=== PATIENT | female | born 1975 | race Caucasian/White ===

== ENCOUNTER 2020-10-05 07:06 | Outpatient (CLI) | payer BC, SELFPAY ==
[2020-10-05 07:53] LABS: Basophils Absolute Auto 0.02 K/mm3 (0.00-0.10); Basophils Percent Auto 0.4 % (0.0-1.0); Eosinophils Absolute Auto 0.14 K/mm3 (0.02-0.50); Hematocrit 39.4 % (35.0-49.0); Hemoglobin 13.1 g/dL (12.0-15.0); Immature Granulocyte Absolute 0.02 K/mm3 (0.00-0.00); Immature Granulocyte Percent A 0.4 % (0.0-0.0); Lymphocytes Absolute Auto 1.43 K/mm3 (1.10-4.50); Mean Corpuscular HGB Conc 33.2 g/dL (32.0-36.0); Mean Corpuscular Volume 99.2 fL (78.0-102.0); Mean Platelet Volume 8.8 fl (9.2-11.8); Monocytes Absolute Auto 0.52 K/mm3 (0.10-0.90); Monocytes Percent Auto 11.3 % (2.0-11.0); Neutrophils Absolute Auto 2.5 K/mm3 (1.7-7.2); Neutrophils Percent Auto 53.9 % (50.0-70.0); Platelet Count Result 328 K/mm3 (150-420); Red Blood Count 3.97 M/mm3 (4.20-5.40); Red Cell Distribution Width 12.4 % (11.6-14.4); White Blood Count 4.6 K/mm3 (4.8-10.8)
[2020-10-05 09:04] LABS: Alanine Aminotransferase 32 U/L (14-59); Albumin Level 3.9 g/dL (3.4-5.0); Alkaline Phosphatase 59 U/L (46-116); Anion Gap 8 mmol/L (8-16); Aspartate Amino Transferase 17 U/L (15-37); Bilirubin,Total 0.3 mg/dL (0.00-1.00); Blood Urea Nitrogen 9 mg/dL (7-18); Carbon Dioxide 28 mmol/L (21-32); Chloride 107 mmol/L (98-108); Cholesterol 159 mg/dL (0-200); Estimated Glomerular Filt Rate > 60; Free T3 2.09 pg/mL (2.18-3.98); Free T4 Free Thyroxine 0.68 ng/dL (0.76-1.46); Glucose 83 mg/dL (70-99); HDL Direct 73 mg/dL (40-60); LDL Cholesterol Calculated 77 mg/dL (<130); Osmolality Calculated 293 mOsm/kg (285-295); Potassium 4.6 mmol/L (3.5-5.1); Sodium 143 mmol/L (136-145); Thyroid Stimulating Hormone 1.23 uIU/mL (0.36-3.74); Total Protein 6.5 g/dL (6.4-8.2); Triglycerides 46 mg/dL (0-150)
[2020-10-07 14:13] LABS: Homocysteine 10.1 umol/L (<10.4)
[2020-10-08 07:20] LABS: Cortisol Random 10.6 mcg/dL (***); FSH 6.3 mIU/mL (***); LH 9.6 mIU/mL (***)
[2020-10-08 10:23] LABS: CRP, High Sensitivity <0.3 mg/L (***)
[2020-10-08 13:28] LABS: Vitamin D 25 Hydroxy 49 ng/mL (30-100)
[2020-10-09 07:09] LABS: Insulin Level Total 3.8 uIU/mL (<=19.6); Testosterone Free 14.9 pg/mL (0.2-5.0)
[2020-10-10 18:00] LABS: Estradiol, Ultrasensitive 140 pg/mL
[2020-10-10 21:13] LABS: Estrone 67 pg/mL
[2020-10-29 09:35] LABS: IGFBP-1 10
== END 2020-10-05 07:07 | disposition home or self-care (01) ==
DX: E28.39 Other primary ovarian failure (principal); E34.9 Endocrine disorder, unspecified; E03.9 Hypothyroidism, unspecified; E53.9 Vitamin B deficiency, unspecified; E55.9 Vitamin D deficiency, unspecified; E72.11 Homocystinuria; D50.9 Iron deficiency anemia, unspecified; R53.83 Other fatigue; R68.82 Decreased libido; R45.4 Irritability and anger; R63.5 Abnormal weight gain; N94.3 Premenstrual tension syndrome; N94.6 Dysmenorrhea, unspecified; K59.00 Constipation, unspecified
CPT/HCPCS: 36415; 80053; 80061; 82306; 82533; 82670; 82679; 83001; 83002; 83036; 83090; 83525; 84402; 84439; 84443; 84481; 85025; 86141

== ENCOUNTER 2021-05-17 07:07 | Outpatient (CLI) | payer BC, SELFPAY ==
[2021-05-17 08:04] LABS: Free T4 Free Thyroxine 0.55 ng/dL (0.76-1.46)
[2021-05-21 08:19] LABS: FSH 2.6 mIU/mL (***)
[2021-05-22 14:14] LABS: Sex Hormone Binding Globulin 62 nmol/L (17-124)
[2021-05-24 20:42] LABS: Estradiol, Ultrasensitive 182 pg/mL
[2021-05-25 09:36] LABS: Testosterone Free 93.6 pg/mL (0.1-6.4); Testosterone Total 448 ng/dL (2-45)
[2021-06-01 20:25] LABS: Total Triiodothyronine (T3) 79.9 ng/dL (76-181)
== END 2021-05-17 07:08 | disposition home or self-care (01) ==
LOC: CHSLAB 07:11
PROVIDERS: Visit Provider Family Medicine
DX: N95.1 Menopausal and female climacteric states (principal); R53.83 Other fatigue; E34.9 Endocrine disorder, unspecified; R68.82 Decreased libido
CPT/HCPCS: 36415; 82670; 83001; 84270; 84402; 84403; 84439; 84443; 84480